=== PATIENT | male | born 1950 ===

== ENCOUNTER 2019-06-02 09:47 | Outpatient (CLI) | payer MEDICARE, SELFPAY ==
--- NOTE | 2019-06-02 10:44 | ECG_ITS ---
Measurements Intervals Depue Rate: 58 P: 43 CO: 169 QRS: -14 QRSD: 106 T: 64 QT: 396 QTc: 390 Interpretive Statements SINUS BRADYCARDIA LOW QRS VOLTAGE IN LIMB LEADS POOR R WAVE PROGRESSION, ANTERIOR LEADS BASELINE ARTIFACT- I, II, AVR, V3-V5 BORDERLINE ECG Electronically Signed On 06-02-2019 11:46:00 [employer]ENIOR [employer]INC[employer]AL [employer]ESS ENGINEER by Ravi Tavera D.O.
[2019-06-02 11:20] LABS: Basophils Percent Auto 0.6 % (0.2-1.2); Eosinophils Absolute Auto 0.2 K/mm3 (0-0.3); Eosinophils Percent Auto 2.5 % (0-4.4); Hematocrit 48.7 % (42.0-52.0); Hemoglobin 16.1 g/dL (14.0-18.0); Immature Granulocyte Absolute 0.02 K/mm3 (0.00-0.031); Immature Granulocyte Percent A 0.3 % (0-0.5); Lymphocytes Absolute Auto 1.65 K/mm3 (0.9-3.2); Lymphocytes Percent Auto 26.2 % (18.3-44.2); Mean Corpuscular HGB Conc 33.1 g/dl (32-36); Mean Corpuscular Hemoglobin 30.1 pg (26-34); Mean Corpuscular Volume 91.2 fl (80-100); Mean Platelet Volume 10.2 fl (7.4-10.4); Monocytes Absolute Auto 0.3 K/mm3 (0.1-0.6); Monocytes Percent Auto 5.4 % (2.6-8.5); Neutrophils Absolute Auto 4.1 K/mm3 (1.3-6.7); Platelet Count Result 203 k/mm3 (150-375); Red Blood Count 5.34 M/mm3 (4.6-6.20); Red Cell Distribution Width 12.9 % (11.5-14.5); White Blood Count 6.3 K/mm3 (4.5-10.0)
[2019-06-02 11:29] LABS: Hemoglobin A1C 5.4 % (<5.7)
[2019-06-02 11:30] LABS: Urine Cotinine POSITIVE
[2019-06-02 11:36] LABS: Albumin Level 4.6 g/dL (3.5-5.1); Estimated Glomerular Filt Rate > 60; Glucose 94 mg/dL (75-110)
== END 2019-06-02 09:48 | disposition home or self-care (01) ==
LOC: ANHSURGERY 09:51
PROVIDERS: PCP Family Medicine; Visit Provider Orthopaedic Surgery
DX: Z01.810 Encounter for preprocedural cardiovascular examination (principal); Z01.812 Encounter for preprocedural laboratory examination; M17.11 Unilateral primary osteoarthritis, right knee; I10 Essential (primary) hypertension; R00.1 Bradycardia, unspecified
CPT/HCPCS: 36415; 80307; 82040; 82565; 82947; 83036; 85025; 86850; 86900; 86901; 87081; 93005

== ENCOUNTER → 2022-06-24 09:54 | Outpatient (CLI) | payer MEDICARE, SELFPAY ==
--- NOTE | ~2022-06-24 | MR_ITS ---
EXAMINATION: MR brain IAC wo/w con DATE: 06/24/2022 10:49 INDICATION: Vertigo . 3 months of right-sided hearing loss. TECHNIQUE: Magnetic resonance imaging (MRI) of the brain and brainstem was performed without and with 18 mL Multihance intravenous contrast. Sequences included sagittal and axial T1-weighted FSE, axial diffusion-weighted FS EPI, axial T2*-weighted GRE, axial T2-weighted FLAIR Propeller, axial T2-weight ed Propeller, small bmwei-qv-dqlo coronal FIESTA, small atwuc-nn-ausa coronal T1-weighted FSE, and sm all [id number]-[id number]-wufd axial T1-weighted SPGR. Postcontrast sequences included axial T1-weighted FSE, smal l lrruw-bs-gfmb coronal T1-weighted FSE, and small fmdwg-hm-grbc axial T1-weighted SPGR. Apparent dif fusion coefficient (ADC) maps were created. COMPARISON: None. FINDINGS: There are no areas of restricted diffusion to suggest acute infarction. No intracranial hemorrhage or abnormal intracranial mass lesion. There are no intraparenchymal signal abnormalities seen on the ot her pulse sequences. The ventricles are symmetric and normal in size. There are no abnormally enhanci ng intracranial lesions. There are no abnormal extra-axial fluid collections. Flow voids are seen in the cerebral arteries on the T2-weighted sequences consistent with their expected patency. Mild mucosal thickening in the right frontal and bilateral ethmoid sinuses. More prominent mucosal th ickening and/or mucous nearly filling the right maxillary sinus which demonstrates thickened han hedrick ch as in the setting of chronic sinusitis. There is increased fluid within the bilateral optic nerve sheaths which measure approximately 9 mm diameter on both the left and right which can be seen in the setting of increased intracranial pressure. Orbits are otherwise unremarkable. Basal cisterns are pa tent. There is fluid filling the right mastoid air cells. There is thin rim enhancement at the periphery of the fluid-filled right mastoid air cells. The bilateral internal auditory canals appear unremarkable with normal seventh/eighth cranial nerve complexes. No cerebellopontine angles masses. The cochlea, vestibule and semicircular canals appear normal and symmetric. No evident fluid in the bilateral mid dle ear cavities and left mastoid air cells. IMPRESSION: 1. Enhancing mucosa along the periphery of the completely fluid-filled right mastoid air cells. Corre late clinically for right mastoiditis. 2. Normal brain. 3. Increased fluid surrounding the normal optic nerves in the bilateral optic nerve sheaths which are dilated to 9 mm in diameter measured 3 mm from the optic disc. This can be seen with intracranial hy potension. No evident associated papilledema but would correlate with ophthalmic exam. 4. Sinus disease including likely chronic right maxillary sinusitis with associated sinus wall thicke marcos. Reviewed, dictated and finalized at location A. IMPRESSION: 1. Enhancing mucosa along the periphery of the completely fluid-filled right ma stoid air cells. Correlate clinically for right mastoiditis. 2. Normal brain. 3. Increased fluid surrounding the normal optic nerves in the bilateral optic n erve sheaths which are dilated to 9 mm in diameter measured 3 mm from the optic disc. This can be seen with intracranial hypotension. No evident associated pa pilledema but would correlate with ophthalmic exam. 4. Sinus disease including likely chronic right maxillary sinusitis with associ ated sinus wall thickening.
== END ==
PROVIDERS: PCP Family Medicine; Visit Provider Otolaryngology
DX: R42 Dizziness and giddiness (principal); J01.80 Other acute sinusitis
CPT/HCPCS: 70553; A9577